=== PATIENT | male | born 1925 | race Caucasian/White ===

== ENCOUNTER → 2016-06-06 | Outpatient (CLI) | payer MEDICARE | END | disposition home or self-care (01) | LOC: RAD 09:54 | PROVIDERS: ATTEND Specialist | DX: R13.10 Dysphagia, unspecified (principal) | CPT/HCPCS: 74230 ==

== ENCOUNTER 2016-10-04 10:27 | Emergency (ER) | payer MEDICARE ==
[~2016-10-04] VITALS: Ht 175.3 cm; Wt 68.0 kg
[2016-10-04] MEDS ORDERED: SIMV5TAB5 PO (10:50)
[2016-10-04] MEDS ORDERED: TRAZ50TA18 PO (10:50)
[2016-10-04] MEDS ORDERED: LIDOCAINE 1%-EPI 1:100K, 20ML INFIL ONE (11:00)
[2016-10-04] MEDS ORDERED: LIDOCAINE 1%, 20ML ONE (11:11)
[2016-10-04 11:14] LABS: HEMATOCRIT 41.1 % (39.2-51.8); HEMOGLOBIN 14.1 g/dL (13.7-18.0); WHITE BLOOD COUNT 4.7 x10^3/uL (3.4-10)
[2016-10-04 11:26] LABS: BLOOD UREA NITROGEN 18 mg/dL (7-18)
[2016-10-04] MEDS ORDERED: BACITRACIN ZINC OINT 500U/GM, 0.9 GM ONE (13:38)
[2016-10-04 14:24] VITALS: BP 126/62
== END 2016-10-04 15:11 | disposition home or self-care (01) ==
LOC: ED 13:04
DX: S01.81XA Laceration without foreign body of other part of head, initial encounter (principal); G30.9 Alzheimer's disease, unspecified; F02.80 Dementia in other diseases classified elsewhere, unspecified severity, without behavioral disturbance, psychotic disturbance, mood disturbance, and anxiety; W18.39XA Other fall on same level, initial encounter; Y93.89 Activity, other specified; Y99.8 Other external cause status; Y92.099 Unspecified place in other non-institutional residence as the place of occurrence of the external cause
CPT/HCPCS: 12011; 36415; 70450; 80048; 85025; 99285